=== PATIENT | female | born 1945 | race Hispanic/Latino ===

== ENCOUNTER 2018-09-03 05:41 | Day surgery (SDC) | payer MEDICARE ==
--- NOTE | 2018-07-20 13:54 | NUR ---
NURSING PER DAUGHTER CASE WAS RESCHEDULED BY DR BARAKAT OFFICE FOR AUG 17 Addendum: 07/20/18 at 1356 by KATHIE STEIN RN Amended: Links added.
[~2018-09-03] VITALS: Ht 162.6 cm; Wt 83.9 kg
[~2018-09-03 05:41] MED LIST: CLOP75TA32 PO; CYCL10TA7 PO; FOLI1TAB85 PO; INS7030 SQ; IRON1CAP6 PO; METO25TA6 PO; PANT40TA25 PO; SODIUM CHLORIDE 0.9% 1000ML 1,000 ML IV ONE; TORS20TA4 PO; TRAM50TA4 PO; VIT1TABL96 PO
[2018-09-03 05:53] VITALS: BP 125/68
[2018-09-03] MEDS ORDERED: DEXTROSE 50%-WATER 50 ML DISP.SYRIN IV ONE (06:24)
--- NOTE | 2018-09-03 06:24 | NUR ---
PER MIGUE RUTH BS OF 63, NO SYMPTOMS OF HYPOGLYCEMIA NOTED, GACE 1/2 AMPLE OF DEXTROSE 25% VIA IV.
--- NOTE | 2018-09-03 07:05 | NUR ---
BS 98, PATIENT IN NO DISTRESS OR DISCOMFORT.
[2018-09-03] MEDS ORDERED: PROPOFOL 10 MG/ML 20ML VIAL IV ONE ×2 (07:34)
[2018-09-03 07:58] VITALS: BP 103/42
[2018-09-03 08:03] VITALS: BP 94/37
[2018-09-03 08:08] VITALS: BP 94/46
[2018-09-03 08:13] VITALS: BP 106/49
[2018-09-03 08:20] VITALS: BP 115/58
== END 2018-09-03 08:30 | disposition home or self-care (01) ==
LOC: DAH 05:41
PROVIDERS: ATTEND Internal Medicine
DX: K57.30 Diverticulosis of large intestine without perforation or abscess without bleeding (principal); Z98.0 Intestinal bypass and anastomosis status; R19.4 Change in bowel habit; Z85.038 Personal history of other malignant neoplasm of large intestine; M19.90 Unspecified osteoarthritis, unspecified site; I10 Essential (primary) hypertension; Z86.73 Personal history of transient ischemic attack (TIA), and cerebral infarction without residual deficits; E11.9 Type 2 diabetes mellitus without complications; M81.0 Age-related osteoporosis without current pathological fracture; Z79.899 Other long term (current) drug therapy; Z98.890 Other specified postprocedural states; Z88.2 Allergy status to sulfonamides; Z88.8 Allergy status to other drugs, medicaments and biological substances; Z79.4 Long term (current) use of insulin; Z79.84 Long term (current) use of oral hypoglycemic drugs; K64.9 Unspecified hemorrhoids
CPT/HCPCS: 45378; 82948 ×3; 93005; A4606; J2704 ×2; J7030; J7070